=== PATIENT | male | born 1980 | race Caucasian/White ===

== ENCOUNTER 2024-09-21 21:38 | Emergency (ER) | payer BC, SELFPAY ==
--- NOTE | ~2024-09-21 | CT_ITS ---
CLINICAL INDICATION: Diffuse abdominal tenderness with nausea and bloating COMPARISON: None. TECHNIQUE: Multiple contiguous axial images of the abdomen and pelvis were performed following the ad ministration of with 100 mL Omnipaque-350 intravenous contrast The dose-length product (DLP) was 366.00 mGy-cm. Automated exposure control and iterative reconstruction technique were employed. FINDINGS/OBSERVATIONS: Visualized lower thorax: The bilateral lung bases are clear. The heart is of normal size, without pericardial effusion. Liver: The liver demonstrates homogeneous enhancement and is not enlarged. Gallbladder and biliary system: The gallbladder is only minimally distended, and otherwise unremarkable. Pancreas: The pancreas enhances homogeneously without ductal dilatation. Spleen: The spleen enhances homogeneously and is not enlarged. Kidneys: Left-sided hydroureteronephrosis secondary to the distal left ureter where a 5 mm calculus i s identified. The remainder of the bilateral kidneys enhance symmetrically without additional renal calculi. Adrenal glands: Unremarkable. Gastrointestinal tract: Retained gastric contents within the stomach, consistent with patient's histo ry. Appendix: The air-filled appendix is of normal caliber (axial series, images 119 through 133). Vasculature: Unremarkable. Lymph nodes: No pathologically enlarged or morphologically suspicious lymph nodes within the retroperitoneum or at the root of the mesentery. Pelvic structures: The bladder is decompressed, limiting its evaluation. 5 mm calculus at the left ureterovesicular junction. The prostate gland is not enlarged but contains bulky calcifications.. Body wall and musculoskeletal: No significant degenerative disease within the lower thoracic or lumbosacral spine. IMPRESSION: Left-sided hydroureteronephrosis secondary to a 5 mm calculus at the left ureterovesicular junction. Reviewed, dictated and finalized at location A. IMPRESSION: Left-sided hydroureteronephrosis secondary to a 5 mm calculus at the left urete rovesicular junction.
[2024-09-21 21:38] VITALS: BP 151/98; PULSE 72; RESP 16; TEMP 36.4; O2SAT 98
--- NOTE | 2024-09-21 21:50 | ED_ITS ---
HPI - Abdominal Pain General Chief Complaint: Abdominal Pain Stated Complaint: abdominal pain Time Seen by Provider: 09/21/24 21:50 Source: patient Mode of arrival: ambulatory Limitations: no limitations History of Present Illness HPI narrative: patient drove himself to the emergency room complaining of abdominal pain, bloating associated with nausea no started within 1-1/2 hour prior to arrival to the emergency room. He denies any fever or chills or vomiting or diarrhea or constipation or history of abdominal surgery. Patient is healthy otherwise does not take medicine at home, does not smoke or drink uses marijuana occasionally. Related Data Allergies Allergy/AdvReac Type Severity Reaction Status Date / Time Sulfa (Sulfonamide Allergy Unknown Verified 09/21/24 22:11 Antibiotics) Review of Systems 2 Review of Systems: All systems reviewed & are unremarkable except as noted in HPI and below Exam 2 Narrative: General appearance: Well-developed, well-nourished Skin: Normal color Head: Normocephalic, nontraumatic Eyes: Clear conjunctiva ENT: Oropharynx normal, ears normal, nose normal Neck: Supple, nontender Chest and respiratory: Airway patent, no respiratory distress, no accessory muscle use Heart: Regular rate/rhythm Abdomen: Soft, Diffuse tenderness no organomegaly, quiet bowel sounds no guarding or rebound Vascular: Normal peripheral pulses, normal capillary refill. Musculoskeletal: Normal range of motion, nontender back Neurologic: Alert and oriented ?3, TEST DESKMAN is normal as tested, no gross motor deficit Course Vital Signs Vital signs: Vital Signs Temperature 36.4 C L 09/21/24 21:38 Pulse Rate 72 09/21/24 21:38 Respiratory Rate 16 09/21/24 21:38 Blood Pressure 151/98 H 09/21/24 21:38 Pulse Oximetry 98 09/21/24 21:38 Oxygen Delivery Room Air 09/21/24 21:38 Temperature 36.4 C L 09/21/24 21:38 Pulse Rate 72 09/21/24 21:38 Respiratory Rate 16 09/21/24 21:38 Blood Pressure 151/98 H 09/21/24 21:38 Pulse Oximetry 98 09/21/24 21:38 Oxygen Delivery Room Air 09/21/24 22:00 MDM - Abdominal Pain MDM Narrative Medical decision making narrative: patient presents with abdominal pain, Vital signs showing blood pressure 151/98 otherwise within normal limit Physical examination showing diffuse abdominal tenderness, mild to moderate Differential diagnosis include colitis, diverticulitis, appendicitis, cholecystitis, constipation or urinary infection Blood workup today includes CBC, CMP, lipase showed no significant abnormalities Urinalysis showed 3+ blood otherwise no evidence of infection CT abdomen and pelvis with IV contrast showed 5 mm distal left ureter Patient's symptom resolved after normal saline IV, Dilaudid 0.5 mg IV, 4 mg of Zofran IV, Flomax 0.4 mg p.o. and Toradol 30 mg IV. Diagnosis kidney stone /left Follow-up with urology The pt was discharged to home.the pt,s condition upon discharge was fair,education was provided to the pt in reference to the final impression,discharge study results,treatment,prognosis and need for follow up . Differential Diagnosis Differential diagnosis: Likely abdominal pain, acute appendicitis, calculus of kidney, constipation, diverticulitis, pancreatitis and small bowel obstruction Medical Records Attestation: I reviewed the patient's medical records. Lab Data Attestation: I reviewed the patient's lab results. 09/21/24 22:01 09/21/24 22:01 Labs: Lab Results 09/21/24 09/21/24 Range/Units 22:01 23:45 WBC 7.0 (4.8-10.8) K/mm3 RBC 4.42 L (4.70-6.10) M/mm3 Hgb 14.2 (14.0-18.0) g/dL Hct 41.1 (40.0-54.0) % MCV 93.0 (78.0-102.0) fL MCH 32.1 H (27.0-31.0) pg MCHC 34.5 (32-36) g/dL RDW 11.5 L (11.6-14.4) % Plt Count 248 (150-420) K/mm3 MPV 9.2 (8.7-11.0) fl Immature Gran % (Auto) 0.3 H (0.0-0.0) % Neut % (Auto) 61.9 (50.0-70.0) % Lymph % (Auto) 28.2 (18.0-42.0) % [place] % (Auto) 7.5 (2.0-11.0) % Eos % (Auto) 1.0 (1.0-6.0) % Baso % (Auto) 1.1 H (0.0-1.0) % Lymph # (Auto) 1.98 (1.10-4.50) K/mm3 [place] # (Auto) 0.53 (0.10-0.90) K/mm3 Eos # (Auto) 0.07 (0.02-0.50) K/mm3 Baso # (Auto) 0.08 (0.00-0.10) K/mm3 Abs Immat Gran (auto) 0.02 H (0.00-0.00) K/mm3 Absolute Neuts (auto) 4.34 (1.70-7.20) K/mm3 Absolute Nucleated RBC 0.00 (0.00-0.00) K/mm3 Nucleated RBC % 0.0 (0-0.0) % Sodium 139 (137-145) mmol/L Potassium 3.6 (3.4-5.0) mmol/L Chloride 107 (98-107) mmol/L Carbon Dioxide 24 (22-30) mmol/L Anion Gap 8 (4-12) mmol/L BUN 14 (9-20) mg/dL Creatinine 1.07 (0.7-1.3) mg/dL Estim Creat Clear Calc 89 ml/min Estimated GFR > 60 (59 - ) Glucose 154 H (65-110) mg/dL Calculated Osmolality 291 (285-295) mOsm/kg Calcium 9.1 (8.4-10.2) mg/dL Total Bilirubin 0.5 (0.2-1.3) mg/dL AST 33 (17-59) U/L ALT 31 (6-50) U/L Alkaline Phosphatase 69 (38-126) U/L Total Protein 7.0 (6.3-8.2) g/dL Albumin 4.6 (3.5-5.1) g/dL Lipase 152 (23-300) U/L Urine Color Yellow (Yellow) Urine Appearance Clear (Clear) Urine pH 5.5 (5.0-8.0) Ur Specific [place] 1.010 (1.010-1.020) Urine Protein Trace H (Negative) Urine Glucose (UA) Negative (Negative) Urine Ketones Negative (Negative) Ur Blood (Man) 3+ H (Negative) Urine Nitrate Negative (Negative) Urine Bilirubin Negative (Negative) Urine Urobilinogen 0.2 (0.2-1.0) mg/dL Leukocyte Esterase Rfl Negative (Negative) REYES/UL Urine RBC 11-20 H (0-2) /hpf Urine WBC 0-3 (0-3) /hpf Ur Squamous Epith Cells None seen (Few) /hpf Urine Bacteria None seen (None) /hpf Imaging Data Radiologist's impression: ITS Impressions Abdomen/Pelvis CT 09/21/24 23:14 IMPRESSION: Left-sided hydroureteronephrosis secondary to a 5 mm calculus at the left ureterovesicular junction. Critical Care Time Critical Care Time Critical Care Time: No Discharge Plan Discharge Clinical Impression: Kidney stone on left side Patient Disposition: Home Condition: Improved Instructions: Kidney Stones (ED), How to Strain Your Urine (ED) Additional Instructions: Return if symptoms are worsening , call DR BARAJAS for appointment, take IBUPROFEN 600 MG EVERY 6 HOURS as as needed for aches and pain, continue home medications. Patient Language: Japanese Prescriptions: New hydrocodone-acetaminophen 5-325 mg tablet 1 tablet PO Q4H Qty: 20 0RF ondansetron HCl 4 mg tablet 4 mg PO Q4H Qty: 10 0RF Rx Instructions: 1st dose 1-2 hr before radiation tamsulosin [Flomax] 0.4 mg capsule 0.4 mg PO DAILY Qty: 10 0RF Follow-up/Referrals: Dimple Foreman MD [Physician] - Neil Barajas MD [Physician] - 09/22/24 Stand Alone Forms: Work/School Release IP
[2024-09-21 22:05] LABS: Hematocrit 41.1 % (40.0-54.0); Hemoglobin 14.2 g/dL (14.0-18.0); Immature Granulocyte Percent A 0.3 % (0.0-0.0); Lymphocytes Absolute Auto 1.98 K/mm3 (1.10-4.50); Mean Corpuscular HGB Conc 34.5 g/dL (32-36); Mean Corpuscular Hemoglobin 32.1 pg (27.0-31.0); Mean Corpuscular Volume 93.0 fL (78.0-102.0); Nucleated Red Blood Cells Absolute Auto 0.00 K/mm3 (0.00-0.00); Nucleated Red Blood Cells Perc 0.0 % (0-0.0); Platelet Count Result 248 K/mm3 (150-420); Red Blood Count 4.42 M/mm3 (4.70-6.10); White Blood Count 7.0 K/mm3 (4.8-10.8)
[2024-09-21 22:16] LABS: Alanine Aminotransferase 31 U/L (6-50); Albumin Level 4.6 g/dL (3.5-5.1); Alkaline Phosphatase 69 U/L (38-126); Anion Gap 8 mmol/L (4-12); Aspartate Amino Transferase 33 U/L (17-59); Bilirubin,Total 0.5 mg/dL (0.2-1.3); Blood Urea Nitrogen 14 mg/dL (9-20); Calcium 9.1 mg/dL (8.4-10.2); Carbon Dioxide 24 mmol/L (22-30); Chloride 107 mmol/L (98-107); Estimated CRCL calculation 89 ml/min; Estimated Glomerular Filt Rate > 60; Glucose 154 mg/dL (65-110); Lipase 152 U/L (23-300); Osmolality Calculated 291 mOsm/kg (285-295); Potassium 3.6 mmol/L (3.4-5.0); Sodium 139 mmol/L (137-145); Total Protein 7.0 g/dL (6.3-8.2)
[2024-09-21] MEDS: SODIUM CHLORIDE 0.9% IV 1,000 ML 999 ML IV CONT (22:34)
[2024-09-21] MEDS: ONDANSETRON INJ 4 MG/2 ML VIAL IV PUSH (22:35)
[2024-09-21] MEDS: HYDROmorphone HCL INJ (*CRX) 2 MG/ML VIAL 0.5 MG IV PUSH (22:39)
--- NOTE | 2024-09-21 23:42 | PC.NURSE ---
pt ambulatory to bathroom at this time to provide urine specimen. IVF infused and pt reports improved pain.
[2024-09-21 23:48] LABS: Add Urine Microscopic? YES; Appearance Urine Clear (Clear); Glucose Urine UA Negative (Negative); Leukocyte Esterase Ur Negative LEU/UL (Negative); Nitrate Urine Negative (Negative); Specific Grav Ur 1.010 (1.010-1.020)
--- NOTE | 2024-09-22 00:10 | PC.NURSE ---
Pt update provided by SUSY Gorman at this time.
[2024-09-22 00:25] VITALS: BP 135/80; PULSE 84; RESP 18; TEMP 36.1; O2SAT 98
[2024-09-22] MEDS: KETOROLAC 30 MG/ML VIAL (*BKC) IV PUSH (00:30)
[2024-09-22] MEDS: TAMSULOSIN HCL 0.4 MG CAPSULE PO (00:30)
== END 2024-09-22 00:51 | disposition home or self-care (01) ==
PROVIDERS: Emergency Provider Emergency Medicine; Referring Provider Internal Medicine
DX: N20.0 Calculus of kidney (principal)
CPT/HCPCS: 36415; 74177; 80053; 81001; 83690; 85025; 96361; 96374; 96375; 99284; A9270; J1171; J1885; J2405; J7030; Q9967